=== PATIENT | female | born 1960 | race Hispanic/Latino ===

== ENCOUNTER 2020-04-29 12:27 | Emergency (ER) | payer SELFPAY ==
[2020-04-29 12:29] VITALS: BP 134/93; PULSE 89; RESP 14; TEMP 37; O2SAT 98; BMI 29.5
[2020-04-29 12:35] VITALS: BP 134/93; PULSE 101; RESP 14; O2SAT 100
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
[2020-04-29] MEDS: Acetaminophen 500 MG Tablet 1000 MG PO (14:13)
[2020-04-29 14:17] VITALS: BP 119/89; PULSE 103; RESP 18; TEMP 37.7
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
== END 2020-04-29 14:19 | disposition home or self-care (01) ==
PROVIDERS: Emergency Provider Student in an Organized Health Care Education/Training Program
DX: S00.33XA Contusion of nose, initial encounter (principal); S00.531A Contusion of lip, initial encounter; V47.6XXA Car passenger injured in collision with fixed or stationary object in traffic accident, initial encounter; Y93.I9 Activity, other involving external motion; Y92.410 Unspecified street and highway as the place of occurrence of the external cause; Y99.8 Other external cause status
CPT/HCPCS: 70450; 70486; 99283